=== PATIENT | male | born 2000 | race Two or more races ===

== ENCOUNTER 2024-05-18 20:23 | Emergency (ER) | payer OTHER, SELFPAY ==
[2024-05-18 20:35] VITALS: BP 112/73
[2024-05-18 20:54] VITALS: BP 117/81
[2024-05-18 21:00] VITALS: BP 117/74
[2024-05-18] MEDS: PEPCID 40 MG PO (21:07)
[2024-05-18] MEDS: DELTASONE 50 MG PO (21:07)
[2024-05-18 22:00] VITALS: BP 110/78
--- NOTE | 2024-05-18 22:08 | ED.GENMED ---
History of Present Illness
General
Chief Complaint: Insect Sting
Source: patient and family
Time Seen by Provider: 05/18/24 20:48
History of Present Illness
History of Present Illness:
23-year-old male presenting to the emergency department for evaluation after he was stung on the right hand by either a bee or a wasp, subsequently developed significant pain and swelling to the right hand but also started to feel chest tightness.
Patient has a history of food allergies and questionable bee allergy. Treated himself prior to arrival with his EpiPen, 50 mg of Benadryl and Advil. States at time of my evaluation his biggest concern is the swelling to the right hand. No other
concerns presently.
Past History
Past History
ED Past Medical History: None
ED Past Surgical History: None
Social History
Tobacco: Non-smoker
Alcohol: None
Drug: None
Personal: Single
Living: with family
Review of Systems
Review of Systems
All Other Systems: ROS reviewed and negative except as documented in HPI and ROS
Phy Exam
Physical Exam
Physical Exam:
GENERAL: Alert , in no apparent distress
EYE: conjunctiva clear
NECK: Supple,
ENT: o/p clr, mmm. No tonsillar edema, no uvular hypertrophy, no trismus, no stridor, tolerating secretions without
CARDIAC: Regular rate and rhythm
LUNGS: Clear breath sounds bilaterally, no acute respiratory distress, no wheezes/rales/rhonchi
NEUROLOGICAL: Alert and oriented
SKIN: Warm and dry, moderate erythema and edema to the dorsum of the right hand.
MUSCULOSKELETAL: well perfused.
PSYCH: Normal and appropriate interaction.
Scores
Heart Failure Risk
Heart Failure Risk Score: Not Applicable
Heart Score for Chest Pain Patients
STEMI patient?: Not applicable
Withdrawal Assessment of Alcohol
Withdrawal Assessment Completed?: Not applicable
Course
Orders/Labs/Results
Orders:
Orders
05/18/24 20:52
Famotidine [Pepcid] 40 mg PO NOW STA
Prednisone [Deltasone] 50 mg PO NOW STA
Vital Signs
Initial and Last Documented VS:
Initial Vital Signs
Temp Pulse Resp BP Pulse Ox
99.9 F 72 20 112/73 97
05/18/24 20:35 05/18/24 20:35 05/18/24 20:35 05/18/24 20:35 05/18/24 20:35
Last Documented Vital Signs
Temp Pulse Resp BP Pulse Ox
98.1 F 68 15 110/78 98
05/18/24 22:00 05/18/24 22:00 05/18/24 22:00 05/18/24 22:00 05/18/24 22:00
MDM/Problems Addressed
MDM/Problems Addressed:
23-year-old male presenting the emergency department for evaluation following bee sting with possible allergic reaction. Patient did provide himself with his EpiPen. No current signs of anaphylaxis. Will treat with additional steroid and Pepcid.
Will monitor patient. He has an ice pack overlying.
*Pulse Oximetry
Patient hypoxic: no
*Critical Care Note
Total Time (30-74mins, 75-104mins- exclusive of procedures): Not Applicable
Patient Management
Escalation/DeEscalation of care consider admission/obs:
On reevaluation, swelling is somewhat improved. Patient continues to exhibit no signs of anaphylaxis. Will treat with continued steroids, Benadryl and Pepcid. A new prescription for EpiPen was sent to pharmacy. Patient is otherwise stable for
discharge home.
ED Attending Note
-
Portions of this chart may have been created with voice recognition software.� Occasional wrong word or��sound alike� substitutions may have occurred due to the inherent limitations of voice recognition software.
Discharge Plan
Departure
Patient Disposition: Home (Routine Discharge)
Date of Disposition: 05/18/24
Time of Disposition: 22:10
Patient with high blood pressure during this ER visit?: No
Discharge Problem:
Bee sting
Instructions: Insect Bites and Stings (DC)
Prescriptions:
New
prednisone 20 mg tablet
40 mg PO DAILY 4 Days Qty: 8 0RF
epinephrine [EpiPen 2-Bi] 0.3 mg/0.3 mL auto-injector
0.3 mg IM ONCE PRN (Reason: anaphylaxis) Qty: 2 0RF
epinephrine [Auvi-Q] 0.3 mg/0.3 mL auto-injector
0.3 mg IM ONCE PRN (Reason: anaphylaxis) Qty: 2 0RF
Referrals:
Jez Galvan, [Family Provider] -
Interventions
Interventions:
*Risk Screen - Suicide Last Done: 05/18/24 20:35
*General Assessment Last Done: 05/18/24 20:35
ED- Fall Risk Assessment Last Done: 05/18/24 20:35
*ED COVID-19 Vaccine History Last Done: 05/18/24 20:35
*Nursing Disposition Last Done: 05/18/24 22:23
ED-Skin Assessment Last Done: 05/18/24 20:56
ED- Pulmonary Assessment Last Done: 05/18/24 20:56
ED- Cardiac Assessment Last Done: 05/18/24 20:56
Discharge Date and Time
Discharge Date/Time: 05/18/24 22:24
Print Language: [place]
== END 2024-05-18 22:24 | disposition home or self-care (01) ==
LOC: EMR 20:23
PROVIDERS: EMERGENCY PHYSICIAN Student in an Organized Health Care Education/Training Program; FAMILY PHYSICIAN Pediatrics
DX: T63.441A Toxic effect of venom of bees, accidental (unintentional), initial encounter (principal); R07.89 Other chest pain; M79.89 Other specified soft tissue disorders; M79.641 Pain in right hand; Z91.030 Bee allergy status; Z91.018 Allergy to other foods; Z91.010 Allergy to peanuts
CPT/HCPCS: 99283